=== PATIENT | male | born 1960 | race Caucasian/White ===

== ENCOUNTER 2016-08-01 13:52 | Outpatient (CLI) | payer OTHER ==
[~2016-08-01 13:52] MED LIST: AMITRIPTYLINE H10 MG PO; AMITRIPTYLINE100 MG PO; ASPIRIN ADULT L81 MG PO; ATORVASTATIN CA10 MG PO; CARVEDILOL6.25 MG PO; COREG25 MG PO; CRESTOR40 MG; FLOMAX0.4 MG PO; FLUOXETINE20 MG PO; GEMFIBROZIL600 MG PO; HUMALOG100 MG/ML SC; INVANZ1 GM IV; LANTUS SOL100 UNITS/ SC; MAGNESIUM400 M1; MEPERITAB50 MG PO; METFORMIN HCL1000 MG PO; MULTIVITAMIN1 TAB PO; NEURONTIN300 MG PO; NITROSTAT0.4 MG SL; PLAVIX75 MG PO; PROTONIX40 MG PO; RANITIDINE HCL150 MG PO; VITAMIN C500 M1 PO; VITAMIN D-31000 UNIT PO; XODOL1 TA2 PO
--- NOTE | 2016-08-01 15:07 | DIAGNOSTIC IMAGING REPORT ---
PROCEDURE: XR FOOT 3 VIEWS BILATERAL INDICATION: UNKNOWN TECHNIQUE: Three views. Each foot COMPARISON: Right foot films dated 03/07/2016 left foot films dated 03/05/16 FINDINGS: RIGHT FOOT: Resolution of osteomyelitis at the distal end of the second metatarsal. New bone formation metatarsals two through five. 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 IMPRESSION: 1. Left foot no change in postoperative and degenerative changes 2. Right foot: resolution of osteomyelitis at the distal end of the second metatarsal. New bone formation metatarsals two through five.
== END 2016-08-01 23:00 ==
LOC: XR SRH 13:52
DX: L97.522 Non-pressure chronic ulcer of other part of left foot with fat layer exposed (principal); L97.512 Non-pressure chronic ulcer of other part of right foot with fat layer exposed

== ENCOUNTER 2016-10-11 10:50 | Outpatient (CLI) | payer OTHER ==
[~2016-10-11] VITALS: Ht 188 cm; Wt 115.8 kg
[2016-10-11 13:00] VITALS: BP 148/64
--- NOTE | 2016-10-11 13:06 | DIAGNOSTIC IMAGING REPORT ---
PROCEDURE: XR CHEST 1 VIEW INDICATION: PIC line placement. Foot wound. Diabetes. TECHNIQUE: Portable AP view (1200 hours). COMPARISON: Compared to chest x-ray on 10/08/2015 FINDINGS: Right PIC line ends in the upper superior vena cava. Lung are clear. 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 Mild cardiomegaly. Mediastinum is normal. Mild to moderate degenerative changes of the thoracic spine. IMPRESSION: 1. Right PIC line ends in upper superior vena cava. 2. Status post pacemaker /defibrillator. 3. Status post coronary artery bypass graft. 4. Mild cardiomegaly. 5. Findings called to the floor ([place]).
== END 2016-10-11 14:20 | disposition home or self-care (01) ==
LOC: SDP SRH 10:50 → CC SRH 10:56 → SDP SRH 11:00
PROC: 02HV33Z Insertion of Infusion Device into Superior Vena Cava, Percutaneous Approach (ICD-10-PCS; principal; 2016-10-11)
PROC: B548ZZA Ultrasonography of Superior Vena Cava, Guidance (ICD-10-PCS; principal; 2016-10-11)
DX: E11.621 Type 2 diabetes mellitus with foot ulcer (principal); L97.522 Non-pressure chronic ulcer of other part of left foot with fat layer exposed

== ENCOUNTER 2016-10-18 09:46 | Outpatient (CLI) | payer OTHER ==
--- NOTE | 2016-10-23 23:41 | DIAGNOSTIC IMAGING REPORT ---
REFERRING PHYSICIAN/PROVIDER: Ganesh CONSULTING OPERATER: Lucrecia Andersen MD PROCEDURE: Echocardiogram TECHNICAL QUALITY: Fair INDICATION: CARDIOMYOPATHY Normal sinus rhythm. Normal LV size; mild concentric LVH. There is apical akinesis, distal septal hypokinesis, distal anterior wall dyskinesis and normal wall motion otherwise. EF is 45-50%. Mild LA enlargement; otherwise normal chamber sizes. Mitral valve leaflets are normal; mildMAC; mild mitral regurgitation. Aortic valve leaflets are normal; no regurgitation or stenosis. There is a pacing lead traversing the tricuspid valve. No prior study available for comparison.
--- NOTE | 2016-10-23 23:41 | DIAGNOSTIC IMAGING REPORT ---
REFERRING PHYSICIAN/PROVIDER: Ganesh CONSULTING FRAMING MECHANIC: Lucrecia Andersen MD PROCEDURE: Echocardiogram TECHNICAL QUALITY: Fair INDICATION: CARDIOMYOPATHY Normal sinus rhythm. Normal LV size; mild concentric LVH. There is apical akinesis, distal septal hypokinesis, distal anterior wall dyskinesis and normal wall motion otherwise. EF is 45-50%. Mild LA enlargement; otherwise normal chamber sizes. Mitral valve leaflets are normal; mildMAC; mild mitral regurgitation. Aortic valve leaflets are normal; no regurgitation or stenosis. There is a pacing lead traversing the tricuspid valve. No prior study available for comparison.
== END 2016-10-18 23:00 | disposition home or self-care (01) ==
LOC: US SRH 09:46
DX: I42.9 Cardiomyopathy, unspecified (principal)